=== PATIENT | female | born 1980 | race Caucasian/White ===

== ENCOUNTER 2022-07-29 19:44 | Outpatient (CLI) | payer MEDICAID, SELFPAY ==
[2022-07-29 14:51] LABS: Albumin* 4.2 g/dL (3.3-5.0); Chloride* 106 mmol/L (96-114)
[2022-07-29 14:52] LABS: Potassium* 4.1 mmol/L (3.6-5.1); Sodium* 140 mmol/L (135-149)
[2022-07-29 14:54] LABS: Cholesterol* 155 mg/dL (90-199)
[2022-07-29 14:55] LABS: Alanine Aminotransferase* 20 U/L (4-35); Alkaline Phosphatase* 93 U/L (40-150); Aspartate Amino Transferase* 22 U/L (12-35); Bilirubin Total* 0.6 mg/dL (0.1-1.5); Blood Urea Nitrogen* 13 mg/dL (5-24); Calcium* 9.8 mg/dL (8.4-10.6); Carbon Dioxide* 27 mmol/L (20-32); Creatinine* 0.7 mg/dL (0.5-1.5); Estimated Glomerular Filt Rate 111 ml/min; Glucose* 107 mg/dL (60-115); Triglycerides* 43 mg/dL (40-149)
[2022-07-29 14:56] LABS: HDL Cholesterol* 65 mg/dL (>=50); LDL Cholesterol Calculated 81 mg/dL (<100)
[2022-07-29 15:04] LABS: Vitamin D 25 Hydroxy* 13 ng/mL (30-80)
[2022-07-30 12:44] LABS: Folate, Serum 3.3 ng/mL (>=5.9)
== END 2022-07-29 19:45 | disposition home or self-care (01) ==
PROVIDERS: PCP Emergency Medicine; Visit Provider Emergency Medicine
DX: E21.0 Primary hyperparathyroidism (principal); E53.8 Deficiency of other specified B group vitamins; E83.52 Hypercalcemia; Z13.1 Encounter for screening for diabetes mellitus; Z13.6 Encounter for screening for cardiovascular disorders
CPT/HCPCS: 80053; 80061; 82306; 82310; 82746; 83970

== ENCOUNTER 2022-10-07 14:33 | Outpatient (CLI) | payer MEDICAID, SELFPAY ==
--- NOTE | 2022-10-07 14:40 | CRLHL7_ITS ---
For Patients: As a result of the Century Cures Act, medical imaging exams and procedure reports are released immediately into your electronic medical record. You may view this report before your referring provider. If you have questions, please contact your health care provider. BILATERAL SCREENING MAMMOGRAM WITH COMPUTER-AIDED DETECTION TECHNIQUE: CC and MLO views were obtained. These mammographic images have been obtained using full-field digital technique. These mammographic images were interpreted with the benefit of computer-aided detection. COMPARISON FILM: Baseline. FINDINGS: The breasts are heterogeneously dense, which may obscure small masses IMPRESSION: There is no radiographic evidence for malignancy. ASSESSMENT: BI-RADS Category 1: Negative RECOMMENDATION: Routine screening mammogram in 1 year. A lay language report of this examination will be provided to the patient. Wendy Turner M.D. Diagnostic/Breast Radiologist [email or web address] FLAVIO/rom Transcribed: 12:03 p.mSamantha cueto/Dictated by: Wendy Turner MD @ 10/08/2022 8:51:00 AM (Electronically Signed)
== END 2022-10-07 14:34 | disposition home or self-care (01) ==
LOC: MAMMO 14:34
PROVIDERS: PCP Emergency Medicine; Visit Provider Emergency Medicine
DX: Z12.31 Encounter for screening mammogram for malignant neoplasm of breast (principal); R92.2 Inconclusive mammogram
CPT/HCPCS: 77067

== ENCOUNTER 2023-01-22 11:34 | Outpatient (CLI) | payer MEDICAID, SELFPAY | END 2023-01-22 11:35 | disposition home or self-care (01) | PROVIDERS: PCP Emergency Medicine; Visit Provider Emergency Medicine | DX: M25.50 Pain in unspecified joint (principal); E53.8 Deficiency of other specified B group vitamins; E21.0 Primary hyperparathyroidism; Z13.6 Encounter for screening for cardiovascular disorders; Z13.1 Encounter for screening for diabetes mellitus | CPT/HCPCS: 80048; 82306; 82310; 82607; 82746; 83970 ==

== ENCOUNTER 2023-08-14 13:58 | Outpatient (CLI) | payer MEDICAID, SELFPAY | END 2023-08-14 13:59 | disposition home or self-care (01) | PROVIDERS: PCP Emergency Medicine; Visit Provider Emergency Medicine | DX: E53.8 Deficiency of other specified B group vitamins (principal); E21.0 Primary hyperparathyroidism; Z13.220 Encounter for screening for lipoid disorders | CPT/HCPCS: 80053; 80061; 82306; 82310; 82607; 82746; 83970; 84443 ==